=== PATIENT | female | born 1940 | race Caucasian/White ===

== ENCOUNTER 2021-11-22 15:37 | Observation (INO) ==
--- NOTE | 2021-11-22 16:19 | Emergency Department Note ---
Impression & Plan Confusion, HTN (hypertension) ED Provider Note Provider: Ken Gonzalez MD DATE OF SERVICE: 11/22/2021 CHIEF COMPLAINT: Confusion/memory loss HISTORY OF PRESENT ILLNESS: Patient is a 81-year-old female history of hypertension presenting via ambulance today for evaluation of onset of confusion and memory loss this afternoon. Patient states she is in town for her nieces wedding. States she remembers going out for a walk at the hotel they are staying out and coming back but does not really remember getting dressed. She states she is not entirely sure what happened this afternoon but just remembers sitting next to her son in the lobby of the hotel with him asking where the ambulance was. She denies trauma or pain at this time. She reports has a history of high blood pressure and is on lisinopril. She denies any numbness or tingling in her extremities or difficulty with her speech. EMS and nursing report the patient has been somewhat repetitive but awake and answering questio ns. Patient denies a history of similar. She denies recent illness. Patient states a family history of stroke but denies a personal history. REVIEW OF SYSTEMS: A total of 10 review of systems was obtained and negative except as stated above in the HPI. PAST MEDICAL HISTORY: As noted above MEDICATIONS: Reviewed home medications includes aspirin 81mg FMH: There with history of stroke SOCIAL HISTORY: Very distant former smoker PHYSICAL EXAM: GENERAL: alert and oriented to her current location but some haziness to recent events of the day. In no acute distress on stretcher Head: normocephalic and atraumatic EYES: No injection, discharge or icterus. PERRL, EOMI. NECK: Trachea midline. Supple. ENT: Mucous membranes pink and moist. Pharynx without erythema or exudate. Tongue midline. LUNGS: Airway patent. No retractions. Breath sounds clear HEART: Regular rate and rhythm. No chest wall tenderness ABDOMEN: Soft and non-tender, without guarding or rebound. SKIN: Acyanotic, warm, dry, without rashes EXTREMITIES: Without swelling, tenderness or deformity NEUROLOGICAL: No focal deficits and follows all commands No aphasia. No facial droop or slurred speech. Normal strength and tone in the extremities. Sensation to gross touch normal. Ambulatory. EK bpm sinus rhythm with sinus arrhythmia. No acute PVC or PAC. No acute ST segment elevation noted with a QTC of 472. CONTINUOUS CARDIAC MONITORING: was ordered and showed a heart rate of 70s-90s bpm in normal sinus rhythm to sinus arrhythmia Patient's laboratory studies and imaging reviewed. Differential includes Infection, dehydration, metabolic abnormality, hypo/hyperglycemia, electrolyte disturbance, anemia, hypoxia, cardiac sources, intracerebral event, toxicologic, neurologic, as well as other pathologies. IMPRESSION/MEDICAL DECISION MAKING: No significant focal deficit on exam but is somewhat repetitive reporting she does not remember how she got dressed this afternoon for the wedding and what happened. No trauma is reported and the patient denies any significant pain. There is no evidence of traumatic injury to the patient on exam. Patient without aphasia or facial droop. Patient without a clear last known well. No report of intoxicants. The patient is significantly hypertensive upon arrival. Does report a history of occasional leg cramps and is on lisinopril. Reported compliance with these medications. Given the unclear last known well and lack of focal deficits was not made a stroke alert. We will proceed with work-up to try to further evaluate including CT and CTAs of the head and neck. Basic blood work will be sent. Other considerations could be TGA although the age is a bit concerning for more of a CVA picture. Chest x-ray per radiology reassuring. Blood work without significant anemia or leukocytosis. No severe electrolyte abnormality noted with normal TSH. Reviewed EKG and reassuring troponin and doubt this is cardiac in nature. Patient still vague recollection issues and still significantly hypertensive. Given this did give a dose of IV labetalol. CTs of the head & neck per radiology without significant acute abnormality. Question occult CVA still. Given persistent memory issues will recommend further evaluation here at the hospital. Patient later with a mild headache and given a small amount of Tylenol. Blood pressure improved with labetalol. DIAGNOSIS: Confusion, Hypertensive urgency DISPOSITION: Hospitalist will evaluate Patient was agreeable with this plan. Past Med/Surg History Medical History Dyslipidemia GERD (gastroesophageal reflux disease) Thyroid nodule Surgical History H/O: hysterectomy Hx of cholecystectomy Family History Mother Stroke Social History Smoking Status: Former smoker Smoking End Date: Quit at age 31; Hx Alcohol Use: No Hx Substance Use: No Preferred Language: Lithuanian Communication Ability: Effective Check Inspector Required: No Beliefs That Will Affect Care: None Current Living Situation: Alone Other Information That Helps Us Care for You: No Feels Safe at Home: Yes Safety Concerns: Feels Safe At This Time Assistive Devices: Denture - Lower and Glasses Allergies Allergies Allergy/AdvReac Type Severity Reaction Status Date / Time No Known Allergies Allergy Verified 11/22/21 16:57 Home Meds Home Medications Medication Instructions Recorded Confirmed albuterol sulfate 90 mcg/actuation 2 puff INHALATION DIRECTED PRN 11/22/21 11/22/21 aerosol inhaler (Ventolin HFA) amlodipine 5 mg tablet 2.5 - 5 mg PO QAM PRN 11/22/21 11/22/21 aspirin 81 mg tablet,delayed 81 mg PO HS 11/22/21 11/22/21 release baclofen 10 mg tablet 10 mg PO BID PRN 11/22/21 11/22/21 ciclopirox 8 % topical solution 1 applic TOPICAL DAILY 11/22/21 11/22/21 gabapentin 400 mg capsule See Rx Instructions .ROUTE .COMPLEX 11/22/21 11/22/21 lisinopril 30 mg tablet 30 mg PO DAILY 11/22/21 11/22/21 methylprednisolone 4 mg tablets in 0 mg PO DAILY 11/22/21 11/22/21 a dose pack metoprolol succinate 50 mg 75 mg PO DAILY 11/22/21 11/22/21 tablet,extended release 24 hr multivitamin 1 tab PO DAILY 11/22/21 11/22/21 pantoprazole 40 mg tablet,delayed 40 mg PO DAILY 11/22/21 11/22/21 release rosuvastatin 10 mg tablet 10 mg PO DAILY 11/22/21 11/22/21 Results & Data (ED) Vital Signs Vital Signs - 24 hr 11/22/21 15:37 11/22/21 16:08 11/22/21 16:30 Temperature 37.1 C Temperature Source Oral Pulse Rate 100 H 75 68 Pulse Rate from SpO2 Sensor Respiratory Rate 18 22 17 Respiratory Effort / Characteristics Non-Labored Respiratory Depth Normal Respiratory Pattern Regular Blood Pressure 213/142 H 204/108 H 193/108 H Blood Pressure Mean 165 140 136 Pulse Oximetry 97 Oxygen Delivery Method Room Air Sepsis Recent Fever Within 48 Hours No Sepsis New/Unexplained Change in Mental Status No Sepsis Action Taken by Nursing No Action Required 11/22/21 17:00 11/22/21 17:34 11/22/21 18:00 Temperature Temperature Source Pulse Rate 66 96 H 97 H Pulse Rate from SpO2 Sensor 66 93 H 97 H Respiratory Rate 13 18 22 Respiratory Effort / Characteristics Respiratory Depth Respiratory Pattern Blood Pressure 185/96 H 210/123 H 215/108 H Blood Pressure Mean 125 152 143 Pulse Oximetry 96 97 97 Oxygen Delivery Method Sepsis Recent Fever Within 48 Hours Sepsis New/Unexplained Change in Mental Status Sepsis Action Taken by Nursing 11/22/21 18:30 Temperature Temperature Source Pulse Rate 77 Pulse Rate from SpO2 Sensor Respiratory Rate 20 Respiratory Effort / Characteristics Respiratory Depth Respiratory Pattern Blood Pressure 159/102 H Blood Pressure Mean 121 Pulse Oximetry Oxygen Delivery Method Sepsis Recent Fever Within 48 Hours Sepsis New/Unexplained Change in Mental Status Sepsis Action Taken by Nursing Laboratory Data Result diagrams: 11/22/21 15:53 11/22/21 15:53 Lab Results 11/22/21 11/22/21 11/22/21 Range/Units 15:53 15:53 15:53 WBC 9.94 (4.8-10.8) K/uL RBC 4.67 (4.2-5.4) M/uL Hgb 14.6 (12.0-16.0) g/dL Hct 44.6 (37-47) % MCV 95.5 (80-100) fL MCH 31.3 (25-34) pg MCHC 32.7 (32-36) g/dL RDW Std Deviation 45.4 (36.4-46.3) fL RDW Coeff of Dot 13.1 (11.5-14.5) % Plt Count 259 (130-400) K/uL MPV 11.4 H (7.4-10.4) fL Immature Gran % (Auto) 0.5 % Neut % (Auto) 70.5 % Lymph % (Auto) 22.5 % Barron % (Auto) 5.9 % Eos % (Auto) 0.3 % Baso % (Auto) 0.3 % Neut # (Auto) 7.00 H (1.4-6.5) K/uL Lymph # (Auto) 2.24 (1.2-3.4) K/uL Barron # (Auto) 0.59 (0.11-0.59) K/uL Eos # (Auto) 0.03 (0-0.5) K/uL Baso # (Auto) 0.03 (0-0.2) K/uL Immature Gran # (Auto) 0.05 H (0.00-0.02) K/uL PT 10.3 (9.0-12.0) Seconds INR 1.0 (0.9-1.1) APTT 25.1 (21.0-31.0) Seconds PTT Ratio 0.9 Sodium 137 (136-145) mmol/L Potassium 3.6 (3.5-5.1) mmol/L Chloride 97 L (98-107) mmol/L Carbon Dioxide 31 (21-32) mmol/L Anion Gap 9 (3-11) BUN 19 (6-23) mg/dl Creatinine 0.68 (0.6-1.2) mg/dl Est Cr Clr Drug Dosing 60.4 ml/min Est GFR ( Amer) 96.4 ml/min Est GFR (Non-Af Amer) 83.2 ml/min BUN/Creatinine Ratio 27.9 H (10-20) Glucose 100 H (70-99(Fasting)) mg/dl Calcium 9.3 (8.5-10.1) mg/dl Magnesium 2.0 (1.7-2.4) mg/dl Total Bilirubin 0.7 (0.2-1.0) mg/dl AST 21 (13-39) U/L ALT 18 (7-52) U/L Alkaline Phosphatase 59 (34-104) U/L Troponin I High Sens 6.7 (0-14) pg/ml Total Protein 7.6 (6.0-8.3) gm/dl Albumin 4.7 (3.4-5.0) gm/dl Globulin 2.9 (2.5-4.0) gm/dl Albumin/Globulin Ratio 1.6 (0.9-2) TSH (0.300-4.500) uIu/ml Urine Color Urine Appearance (Clear) Urine pH (4.5-7.5) Ur Specific [place] (1.000-1.030) Urine Protein (Negative) Urine Glucose (UA) (Negative) Urine Ketones (Negative) Urine Blood (Negative) Urine Nitrite (Negative) Urine Bilirubin (Negative) Urine Urobilinogen (Negative) Ur Leukocyte Esterase (Negative) Urine WBC (Auto) (0-5) /hpf Urine RBC (Auto) (0-4) /hpf U Hyaline Cast (Auto) (0-5) /lpf U Epithel Cells (Auto) (0-5) /lpf Urine Bacteria (Auto) (Negative) SARS-CoV-2, RNA, NAAT (NEGATIVE) 11/22/21 11/22/21 11/22/21 Range/Units 15:53 16:50 18:29 WBC (4.8-10.8) K/uL RBC (4.2-5.4) M/uL Hgb (12.0-16.0) g/dL Hct (37-47) % MCV (80-100) fL MCH (25-34) pg MCHC (32-36) g/dL RDW Std Deviation (36.4-46.3) fL RDW Coeff of Dot (11.5-14.5) % Plt Count (130-400) K/uL MPV (7.4-10.4) fL Immature Gran % (Auto) % Neut % (Auto) % Lymph % (Auto) % Barron % (Auto) % Eos % (Auto) % Baso % (Auto) % Neut # (Auto) (1.4-6.5) K/uL Lymph # (Auto) (1.2-3.4) K/uL Barron # (Auto) (0.11-0.59) K/uL Eos # (Auto) (0-0.5) K/uL Baso # (Auto) (0-0.2) K/uL Immature Gran # (Auto) (0.00-0.02) K/uL PT (9.0-12.0) Seconds INR (0.9-1.1) APTT (21.0-31.0) Seconds PTT Ratio Sodium (136-145) mmol/L Potassium (3.5-5.1) mmol/L Chloride (98-107) mmol/L Carbon Dioxide (21-32) mmol/L Anion Gap (3-11) BUN (6-23) mg/dl Creatinine (0.6-1.2) mg/dl Est Cr Clr Drug Dosing ml/min Est GFR ( Amer) ml/min Est GFR (Non-Af Amer) ml/min BUN/Creatinine Ratio (10-20) Glucose (70-99(Fasting)) mg/dl Calcium (8.5-10.1) mg/dl Magnesium (1.7-2.4) mg/dl Total Bilirubin (0.2-1.0) mg/dl AST (13-39) U/L ALT (7-52) U/L Alkaline Phosphatase (34-104) U/L Troponin I High Sens (0-14) pg/ml Total Protein (6.0-8.3) gm/dl Albumin (3.4-5.0) gm/dl Globulin (2.5-4.0) gm/dl Albumin/Globulin Ratio (0.9-2) TSH 0.895 (0.300-4.500) uIu/ml Urine Color Yellow Urine Appearance Clear (Clear) Urine pH 7.0 (4.5-7.5) Ur Specific [place] 1.004 (1.000-1.030) Urine Protein Negative (Negative) Urine Glucose (UA) Negative (Negative) Urine Ketones Negative (Negative) Urine Blood Trace H (Negative) Urine Nitrite Negative (Negative) Urine Bilirubin Negative (Negative) Urine Urobilinogen Negative (Negative) Ur Leukocyte Esterase Negative (Negative) Urine WBC (Auto) 0 (0-5) /hpf Urine RBC (Auto) 0-4 (0-4) /hpf U Hyaline Cast (Auto) 0 (0-5) /lpf U Epithel Cells (Auto) 0-5 (0-5) /lpf Urine Bacteria (Auto) Negative (Negative) SARS-CoV-2, RNA, NAAT NEGATIVE (NEGATIVE) Administered Medications Acetaminophen (Acetaminophen 325 Mg Tab) 650 mg PO Q4H PRN PRN Reason: Pain or Fever Stop: 12/22/21 21:59 Last Admin: 11/22/21 22:18 Dose: 650 mg Documented by: [id number] Gabapentin (Gabapentin 800 Mg Tab) 800 mg PO QPM BENJA Stop: 12/22/21 20:59 Last Admin: 11/22/21 21:26 Dose: 800 mg Documented by: [id number] Discontinued Medications Acetaminophen (Acetaminophen 325 Mg Tab) 650 mg PO NOW STA Stop: 11/22/21 18:09 Last Admin: 11/22/21 18:21 Dose: 650 mg Documented by: [id number] Amlodipine Besylate (Amlodipine Besylate 5 Mg Tab) 2.5 mg PO HS ONE Stop: 11/22/21 19:16 Last Admin: 11/22/21 19:24 Dose: 2.5 mg Documented by: [id number] Aspirin (Aspirin 81 Mg Ectab) 81 mg PO NOW STA Stop: 11/22/21 19:16 Last Admin: 11/22/21 19:24 Dose: 81 mg Documented by: [id number] Thiamine HCl 500 mg/ Sodium (Chloride) 55 mls @ 220 mls/hr IV ONE ONE Stop: 11/22/21 19:59 Last Infusion: 11/22/21 21:28 Dose: 0 mls/hr Documented by: [id number] Admin: 11/22/21 21:04 Dose: 220 mls/hr Documented by: [id number] Ioversol (Optiray 320 125ml) 120 ml IV ONCE ONE Stop: 11/22/21 17:12 Last Admin: 11/22/21 17:12 Dose: 120 ml Documented by: [id number] Labetalol HCl (Labetalol Hcl Iv 5 Mg/Ml 20ml) 10 mg IV NOW STA Stop: 11/22/21 17:37 Last Admin: 11/22/21 18:21 Dose: 10 mg Documented by: [id number] Cosigned by: [id number] Imaging Data Radiologist's Impression: Chest X-Ray 11/22/21 16:09 XR chest 1V portable CLINICAL HISTORY: Stroke Like Symptoms, confusion TECHNIQUE: Single frontal radiograph of the chest was obtained. Comparison: None available at the time of this dictation. FINDINGS: No lines and tubes are seen. Calcified aortic knob is seen. The lungs are clear. No evidence of pleural effusion or pneumothorax. IMPRESSION: No acute chest disease. ACT 112: Negative or not required by law. Electronically signed by: Marco Toro M.D. 11/22/2021 4:[address] 11/22/21 16:09 CT angio head w con, CT head/brain wo con, CT angio neck with con CLINICAL HISTORY: Stroke Like Symptoms TECHNIQUE: Contiguous axial CT images of the head were acquired from the base of the skull to the vertex without intravenous contrast administration. CT angiography of the head and neck was performed following intravenous administration of iodinated contrast. Coronal and sagittal MIPS were obtained from the axial data set and were submitted for review. Automated dose lowering techniques and/or adjustment according to patient size were utilized for this examination. All measurements were calculated based on NASCET criteria. CT DOSE: 1032.67 mGy.cm Comparison: None available at the time of this dictation. FINDINGS: CT head: Areas of decreased attenuation are present in the periventricular and subcortical white matter bilaterally consistent with small vessel ischemic disease. Generalized cerebral atrophy with commensurate enlargement of the ventricles, sulci, and cisterns is also present. There is no acute intracranial hemorrhage or evidence of acute territorial infarction. No shift of the midline structures, mass effect, or extra-axial abnormalities are shown. Ather osclerotic calcifications are present in the intracranial segments of the internal carotid arteries. Multiple large thyroid nodules are seen measuring up to 16 mm in diameter. CTA Neck: A 3 vessel aortic arch is shown. There is no significant athe rosclerotic plaque in the aortic arch or the origins of the innominate, left common carotid, and left subclavian arteries. The common carotid, external carotid, cervical segments of the internal carotid arteries, and the cervical segments of the vertebral arteries are patent without hemodynamically significant stenosis. The left vertebral artery is dominant. CTA Head: The anterior and posterior cerebral circulations are patent. No hemodynamically significant stenosis, aneurysm, dissection, or arteriovenous malformation is shown. Atherosclerotic disease is noted. IMPRESSION: 1. No acute intracranial hemorrhage, evidence of acute territorial infarction, or other acute intracranial disease process. 2. No occlusion, hemodynamically significant stenosis, aneurysm, dissection, or arteriovenous malformation in the major intracranial arteries. 3. No occlusion, hemodynamically significant stenosis, or dissection in the major cervical arteries. 4. Multiple thyroid nodules are seen. If not previously evaluated, nonemergent thyroid ultrasound can be performed. Assessment of stenosis of the internal carotid arteries is based on NASCET criteria. ACT 112: Positive. There are findings on this exam that require communication between the performing entity and the patient following Patient Test Result Inf ormation Act ([place] Act 112) guidelines. Electronically signed by: Marco Toro M.D. 11/22/2021 5:39 PM Head CTA 11/22/21 16:09 CT angio head w con, CT head/brain wo con, CT angio neck with con CLINICAL HISTORY: Stroke Like Symptoms TECHNIQUE: Contiguous axial CT images of the head were acquired from the base of the skull to the vertex without intravenous contrast administration. CT angiography of the head and neck was performed following intravenous administration of iodinated contrast. Coronal and sagittal MIPS were obtained from the axial data set and were submitted for review. Automated dose lowering techniques and/or adjustment according to patient size were utilized for this examination. All measurements were calculated based on NASCET criteria. CT DOSE: 1032.67 mGy.cm Comparison: None available at the time of this dictation. FINDINGS: CT head: Areas of decreased attenuation are present in the periventricular and subcortical white matter bilaterally consistent with small vessel ischemic di sease. Generalized cerebral atrophy with commensurate enlargement of the ventricles, sulci, and cisterns is also present. There is no acute intracranial hemorrhage or evidence of acute territorial infarction. No shift of the midline structures, mass effect, or extra-axial abnormalities are shown. A therosclerotic calcifications are present in the intracranial segments of the internal carotid arteries. Multiple large thyroid nodules are seen measuring up to 16 mm in diameter. CTA Neck: A 3 vessel aortic arch is shown. There is no significant atherosclerotic plaque in the aortic arch or the origins of the innominate, left common carotid, and left subclavian arteries. The common carotid, external carotid, cervical segments of the internal carotid arteries, and the cervical segments of the vertebral arteries are patent without hemodynamically significant stenosis. The left vertebral artery is dominant. CTA Head: The anterior and posterior cerebral circulations are patent. No hemodynamically significant stenosis, aneurysm, dissection, or arteriovenous malformation is shown. Atherosclerotic disease is noted. IMPRESSION: 1. No acute intracranial hemorrhage, evidence of acute territorial infarction, or other acute intracranial disease process. 2. No occlusion, hemodynamically significant stenosis, aneurysm, dissection, or arteriovenous malformation in the major intracranial arteries. 3. No occlusion, hemodynamically significant stenosis, or dissection in the major cervical arteries. 4. Multiple thyroid nodules are seen. If not previously evaluated, nonemergent thyroid ultrasound can be performed. Assessment of stenosis of the internal carotid arteries is based on NASCET crit eria. ACT 112: Positive. There are findings on this exam that require communication between the performing entity and the patient following Patient Test Result Information Act ([place] Act 112) guidelines. Electronically signed by: Marco Toro M.D. 11/22/2021 5:39 PM Neck CTA 05/14/22 16:09 CT angio head w con, CT head/brain wo con, CT angio neck with con CLINICAL HISTORY: Stroke Like Symptoms TECHNIQUE: Contiguous axial CT images of the head were acquired from the base of the skull to the vertex without intravenous contrast administration. CT angiography of the head and neck was performed following intravenous administration of iodinated contrast. Coronal and sagittal MIPS were obtained from the axial data set and were submitted for review. Automated dose lowering techniques and/or adjustment according to patient size were utilized for this examination. All measurements were calculated based on NASCET criteria. CT DOSE: 1032.67 mGy.cm Comparison: None available at the time of this dictation. FINDINGS: CT head: Areas of decreased attenuation are present in the periventricular and subcortical white matter bilaterally consistent with small vessel ischemic disease. Generalized cerebral atrophy with commensurate enlargement of the ventricles, sulci, and cisterns is also present. There is no acute intracranial hemorrhage or evidence of acute territorial infarction. No shift of the midline structures, mass effect, or extra-axial abnormalities are shown. Atherosclerotic calcifications are present in the intracranial segments of the internal carotid arteries. Multiple large thyroid nodules are seen measuring up to 16 mm in diameter. CTA Neck: A 3 vessel aortic arch is shown. There is no significant atherosclerotic plaque in the aortic arch or the origins of the innominate, left common carotid, and left subclavian arteries. The common carotid, external carotid, cervical segments of the internal carotid arteries, and the cervical segments of the vertebral arteries are patent without hemodynamically significant stenosis. The left vertebral artery is dominant. CTA Head: The anterior and posterior cerebral circulations are patent. No hemodynamically significant stenosis, aneurysm, dissection, or arteriovenous malformation is shown. Atherosclerotic disease is noted. IMPRESSION: 1. No acute intracranial hemorrhage, evidence of acute territorial infarction, or other acute intracranial disease process. 2. No occlusion, hemodynamically significant stenosis, aneurysm, dissection, or arteriovenous malformation in the major intracranial arteries. 3. No occlusion, hemodynamically significant stenosis, or dissection in the major cervical arteries. 4. Multiple thyroid nodules are seen. If not previously evaluated, nonemergent thyroid ultrasound can be performed. Assessment of stenosis of the internal carotid arteries is based on NASCET criteria. ACT 112: Positive. There are findings on this exam that require communication between the performing entity and the patient following Patient Test Result Information Act ([place] Act 112) guidelines. Electronically signed by: Marco Toro M.D. 11/22/2021 5:39 PM Discharge Plan Visit Data Chief Complaint: Confusion Stated Complaint: CONFUSION ED Provider: Ken Gonzalez Discharge Problem: Confusion, HTN (hypertension) Patient Disposition: Admitted As Inpatient Discharge Instructions Interventions: ED Discharge Assessment Last Done: 11/22/21 20:19 Discharge Problem: HTN (hypertension) Qualifiers: Hypertension type: unspecified Qualified Code(s): I10 - Essential (primary) hypertension
[2021-11-22 16:24] LABS: Basophils # (auto) 0.03 K/uL (0-0.2); Basophils % (auto) 0.3 %; Eosinophils # (auto) 0.03 K/uL (0-0.5); Eosinophils % (auto) 0.3 %; Hematocrit (blood only) 44.6 % (37-47); Hemoglobin 14.6 g/dL (12.0-16.0); Immature Granulocytes # (auto) 0.05 K/uL (0.00-0.02); Immature Granulocytes % (auto) 0.5 %; Lymphocytes # (auto) 2.24 K/uL (1.2-3.4); Lymphocytes % (auto) 22.5 %; Mean Corpuscular Hemoglobin 31.3 pg (25-34); Mean Corpuscular Hgb Conc 32.7 g/dL (32-36); Mean Corpuscular Volume 95.5 fL (80-100); Mean Platelet Volume 11.4 fL (7.4-10.4); Monocytes # (auto) 0.59 K/uL (0.11-0.59); Monocytes % (auto) 5.9 %; Neutrophils % (auto) 70.5 %; Platelet Count 259 K/uL (130-400); RDW Coefficient of Variation 13.1 % (11.5-14.5); RDW Standard Deviation 45.4 fL (36.4-46.3); Red Blood Count 4.67 M/uL (4.2-5.4); White Blood Count 9.94 K/uL (4.8-10.8)
--- NOTE | 2021-11-22 16:35 | XRay Report ---
XR chest 1V portable CLINICAL HISTORY: Stroke Like Symptoms, confusion TECHNIQUE: Single frontal radiograph of the chest was obtained. Comparison: None available at the time of this dictation. FINDINGS: No lines and tubes are seen. Calcified aortic knob is seen. The lungs are clear. No evidence of pleur al effusion or pneumothorax. IMPRESSION: No acute chest disease. ACT 112: Negative or not required by law. Electronically signed by: Marco Toro M.D. 11/22/2021 4:34 PM
[2021-11-22 16:37] LABS: Partial Thromboplastin Ratio 0.9; Partial Thromboplastin Time 25.1 Seconds (21.0-31.0); Prothrombin Time 10.3 Seconds (9.0-12.0)
[2021-11-22 16:43] LABS: Albumin Globulin Ratio 1.6 (0.9-2); Albumin Level 4.7 gm/dl (3.4-5.0); BUN Creatinine Ratio 27.9 (10-20); Bilirubin,Total 0.7 mg/dl (0.2-1.0); Calcium 9.3 mg/dl (8.5-10.1); Creatinine Clr Calc Pharmacy 60.4 ml/min; Est GFR (African American) 96.4 ml/min; Est GFR (Non-African American) 83.2 ml/min; Globulin 2.9 gm/dl (2.5-4.0); Potassium 3.6 mmol/L (3.5-5.1); Total Protein 7.6 gm/dl (6.0-8.3); Troponin I High Sensitivity 6.7 pg/ml (0-14)
[2021-11-22] MEDS ORDERED: OPTIRAY 320 125ml IV ONE (17:11)
[2021-11-22 17:27] LABS: Appearance Urine Clear (Clear); Bacteria Urine Automated Negative (Negative); Bilirubin Urine Negative (Negative); Blood Urine Trace (Negative); Cast Urine Automated 0 /lpf (0-5); Color Urine Yellow; Epithelial Cell Urine Auto 0-5 /lpf (0-5); Glucose Urine UA Negative (Negative); Ketones Urine Negative (Negative); Leukocyte Esterase Urine Negative (Negative); Nitrite Urine Negative (Negative); Protein Urine Negative (Negative); RBC Urine Automated 0-4 /hpf (0-4); Specific Gravity Urine 1.004 (1.000-1.030); Urobilinogen Urine Negative (Negative); WBC Urine Automated 0 /hpf (0-5)
[2021-11-22] MEDS ORDERED: LABETALOL HCL IV 5 MG/ML 20ML IV STA (17:36)
--- NOTE | 2021-11-22 17:42 | CT Scan Report ---
CT angio head w con, CT head/brain wo con, CT angio neck with con CLINICAL HISTORY: Stroke Like Symptoms TECHNIQUE: Contiguous axial CT images of the head were acquired from the base of the skull to the [place] deidra without intravenous contrast administration. CT angiography of the head and neck was performed f ollowing intravenous administration of iodinated contrast. Coronal and sagittal MIPS were obtained fr om the axial data set and were submitted for review. Automated dose lowering techniques and/or adjus tment according to patient size were utilized for this examination. All measurements were calculated based on NASCET criteria. CT DOSE: 1032.67 mGy.cm Comparison: None available at the time of this dictation. FINDINGS: CT head: Areas of decreased attenuation are present in the periventricular and subcortical white gabino er bilaterally consistent with small vessel ischemic disease. Generalized cerebral atrophy with comme nsurate enlargement of the ventricles, sulci, and cisterns is also present. There is no acute intracr anial hemorrhage or evidence of acute territorial infarction. No shift of the midline structures, mas s effect, or extra-axial abnormalities are shown. Atherosclerotic calcifications are present in the intracranial segments of the internal carotid arteries. Multiple large thyroid nodules are seen measuring up to 16 mm in diameter. CTA Neck: A 3 vessel aortic arch is shown. There is no significant atherosclerotic plaque in the aor tic arch or the origins of the innominate, left common carotid, and left subclavian arteries. The c ommon carotid, external carotid, cervical segments of the internal carotid arteries, and the cervical segments of the vertebral arteries are patent without hemodynamically significant stenosis. The left vertebral artery is dominant. CTA Head: The anterior and posterior cerebral circulations are patent. No hemodynamically significan t stenosis, aneurysm, dissection, or arteriovenous malformation is shown. Atherosclerotic disease is noted. IMPRESSION: 1. No acute intracranial hemorrhage, evidence of acute territorial infarction, or other acute intrac ranial disease process. 2. No occlusion, hemodynamically significant stenosis, aneurysm, dissection, or arteriovenous malfor mation in the major intracranial arteries. 3. No occlusion, hemodynamically significant stenosis, or dissection in the major cervical arteries. 4. Multiple thyroid nodules are seen. If not previously evaluated, nonemergent thyroid ultrasound ca n be performed. Assessment of stenosis of the internal carotid arteries is based on NASCET criteria. ACT 112: Positive. There are findings on this exam that require communication between the performing entity and the patient following Patient Test Result Information Act ([place] Act 112) guidelines. Electronically signed by: Marco Toro M.D. 11/22/2021 5:39 PM
--- NOTE | 2021-11-22 17:58 | History & Physical Report ---
Date of Service November 22, 2021 Assessment & Plan (1) Confusion: Plan: Confusion/memory issues DD: CVA, transient global amnesia, Seizure, hypertensive encephalopathy --CTA Head/Neck: No acute intracranial hemorrhage, evidence of acute territorial infarction, or other acute intracranial disease process. No occlusion, hemodynamically significant stenosis, aneurysm, dissection, or arteriovenous malformation in the major intracranial arteries. No occlusion, hemodynamically significant stenosis, or dissection in the major cervical arteries. Multiple thyroid nodules are seen. If not previously evaluated, nonemergent thyroid ultrasound can be performed. -- Given aspirin in ED Blood pressure control Given thiamine 500 mg Obtain MRI brain, EEG, urine tox screen TSH normal Urine analysis normal Check vitamin B12 levels, lipid panel, HbA1c Neuro checks requested Neurology consulted Further work-up based on MRI, EEG results No obvious source of infection noted Hypertensive urgency ? Worsened due to recent steroid course Resume amlodipine, lisinopril IV labetalol as needed Consider ECHO if needed Thyroid nodule TSH within normal limits Further work-up as outpatient Prolonged QTC Avoid QTC prolonging meds Hyperlipidemia Continue statin GERD Continue PPI DVT Px: SCDs for now Disposition PT/OT prior to discharge History of Present Illness Chief Complaint: Amnesia Primary Care Provider: NO PCP Patient is a 81 yr female with history of hypertension, hyperlipidemia, GERD, thyroid nodules, ? Tricuspid valve regurgitation and other medical problems presents with history of memory loss. History is limited as patient unable to recollect events prior to admission. Patient is visiting town for her niece's wedding. Most of the history is obtained from patient, ER staff. Patient was last known to be at baseline at around 11 AM today. Patient recollects to having her breakfast, shower getting dressed for the wedding and remembers discussing with her patient's son but believed to remember calling for ambulance. Patient denies having similar memory issues in the past. Patient could not remember complete events prior to coming to ED. She believes her memory is slowly improving currently. She could not remember if she took her home medications today. She has been on a steroid tapering course for "Buttock swelling secondary to fall 3 weeks ago" which she believes is left with 2 more doses. She was found to be somewhat repetitive when asked questions. She is currently only oriented to place time and person. She denies having any stroke in the past but states that her mother had stroke. CT imaging is negative for acute CVA. Denies any history of chest pain, dyspnea, palpitations, dizziness, cough, fever, chills, head trauma, Syncope, focal weakness, numbness, change in vision, double/blurry vision, vertigo, slurred speech, facial deformity, bowel/bladder incontinence, nausea, vomiting, abdominal pain, blood in stools, diarrhea, change in appetite, weight loss, dysuria, hematuria. Blood pressure is elevated while in ED. She did have some headache earlier which is slowly improving. Allergies Allergy/AdvReac Type Severity Reaction Status Date / Time No Known Allergies Allergy Verified 11/22/21 16:57 Home Medications Medication Instructions Recorded Confirmed Type albuterol sulfate 90 mcg/actuation 2 puff INHALATION DIRECTED PRN 11/22/21 11/22/21 History aerosol inhaler (Ventolin HFA) amlodipine 5 mg tablet 2.5 - 5 mg PO QAM PRN 11/22/21 11/22/21 History aspirin 81 mg tablet,delayed 81 mg PO HS 11/22/21 11/22/21 History release baclofen 10 mg tablet 10 mg PO BID PRN 11/22/21 11/22/21 History ciclopirox 8 % topical solution 1 applic TOPICAL DAILY 11/22/21 11/22/21 History gabapentin 400 mg capsule See Rx Instructions .ROUTE .COMPLEX 11/22/21 11/22/21 History lisinopril 30 mg tablet 30 mg PO DAILY 11/22/21 11/22/21 History methylprednisolone 4 mg tablets in 0 mg PO DAILY 11/22/21 11/22/21 History a dose pack metoprolol succinate 50 mg 75 mg PO DAILY 11/22/21 11/22/21 History tablet,extended release 24 hr multivitamin 1 tab PO DAILY 11/22/21 11/22/21 History pantoprazole 40 mg tablet,delayed 40 mg PO DAILY 11/22/21 11/22/21 History release rosuvastatin 10 mg tablet 10 mg PO DAILY 11/22/21 11/22/21 History Past Med/Surg History Medical History Dyslipidemia GERD (gastroesophageal reflux disease) Thyroid nodule Surgical History H/O: hysterectomy Hx of cholecystectomy Family History Mother Stroke Social History Smoking Status: Former smoker Hx Alcohol Use: No Hx Substance Use: No Preferred Language: Faroese Feels Safe at Home: Yes Review of Systems Review of Systems: All systems reviewed & are unremarkable except as noted in HPI & below Physical Exam Physical Exam: Physical Exam: Vitals signs as noted above General Appearance:Thin, no apparent distress Head: normocephalic, Atraumatic Eyes: normal inspection, EOMI Neck: supple, Trachea midline Respiratory/Chest: Normal breath sounds, CTA, No accessory muscle use Cardiovascular: S1, S2, No murmur Abdomen/GI:Soft, Non tender, Bowel sounds present Extremities/Musculoskeletal:normal inspection, no edema Neurologic/Psych:AAOX3, grossly no focal neurological deficits, +Memory Issues Skin: normal color, warm Results & Data Results & Data ([facility]) Vital Signs (Past 12 Hours) Vital Signs Temp Pulse Resp BP Pulse Ox 11/22/21 15:37 37.1 C 100 H 18 213/142 H 97 Laboratory Results Short CBC 11/22/21 Range/Units 15:53 WBC 9.94 (4.8-10.8) K/uL Hgb 14.6 (12.0-16.0) g/dL Hct 44.6 (37-47) % Plt Count 259 (130-400) K/uL BMP 11/22/21 15:53 Sodium 137 Potassium 3.6 Chloride 97 L Carbon Dioxide 31 BUN 19 Creatinine 0.68 Glucose 100 H Calcium 9.3 Liver Function 11/22/21 Range/Units 15:53 Total Bilirubin 0.7 (0.2-1.0) mg/dl AST 21 (13-39) U/L ALT 18 (7-52) U/L Alkaline Phosphatase 59 (34-104) U/L Albumin 4.7 (3.4-5.0) gm/dl Urine 11/22/21 Range/Units 16:50 Urine Color Yellow Urine Appearance Clear (Clear) Urine pH 7.0 (4.5-7.5) Ur Specific Hester 1.004 (1.000-1.030) Urine Protein Negative (Negative) Urine Glucose (UA) Negative (Negative) Diagnostic Findings CT Head, CTA Head/Neck: 1. No acute intracranial hemorrhage, evidence of acute territorial infarction, or other acute intracranial disease process. 2. No occlusion, hemodynamically significant stenosis, aneurysm, dissection, or arteriovenous malformation in the major intracranial arteries. 3. No occlusion, hemodynamically significant stenosis, or dissection in the major cervical arteries. 4. Multiple thyroid nodules are seen. If not previously evaluated, nonemergent thyroid ultrasound can be performed. CXR: No acute chest disease. ECG Additional Comments: EKG: Sinus rhythm with sinus arrhythmia, QTC 472. Nonspecific ST abnormality.
[2021-11-22] MEDS ORDERED: ACETAMINOPHEN 325 MG TAB PO STA (18:08)
[2021-11-22] MEDS ORDERED: amLODIPine BESYLATE 5 MG TAB PO ONE (19:15)
[2021-11-22] MEDS ORDERED: ASPIRIN 81 MG ECTAB PO STA (19:15)
[2021-11-22] MEDS ORDERED: THIAMINE HCL 500 MG in SODIUM CHLORIDE 0.9% 50 ML IV ONE (19:45)
[2021-11-22] MEDS ORDERED: POLYETHYLENE (MIRALAX) 17 GM PACK PO PRN (20:42)
[2021-11-22] MEDS ORDERED: ALBUTEROL HFA 8 GM INHALER INH PRN (20:42)
[2021-11-22] MEDS ORDERED: LABETALOL HCL IV 5 MG/ML 20ML IV PRN (20:42)
[2021-11-22] MEDS ORDERED: GABAPENTIN 800 MG TAB PO SCH (21:00)
[2021-11-22] MEDS ORDERED: ACETAMINOPHEN 325 MG TAB PO PRN (22:00)
[2021-11-22 23:14] LABS: Amphetamines+Metham, Urine Neg (Neg); Barbiturates, Urine Neg (Neg); Benzodiazepine, Urine Neg (Neg); Cocaine, Urine Neg (Neg); MDMA (Ecstacy), Urine Neg (Neg); Methadone, Urine Neg (Neg); Opiate, Urine Neg (Neg); Phencyclidine, Urine Neg (Neg)
[2021-11-23] MEDS ORDERED: GADOBUTROL 30ML VIAL IV ONE (01:46)
[2021-11-23] MEDS ORDERED: SODIUM CHLORIDE 0.9% 500 ML IV SCH (04:15)
[2021-11-23] MEDS ORDERED: KETOROLAC TROMETHAMINE 15 MG/ML VIAL IV ONE (04:16)
[2021-11-23 07:01] LABS: Hemoglobin 12.3 g/dL (12.0-16.0); Mean Corpuscular Hemoglobin 30.6 pg (25-34); Mean Corpuscular Hgb Conc 32.4 g/dL (32-36); Mean Corpuscular Volume 94.5 fL (80-100); Platelet Count 192 K/uL (130-400); RDW Coefficient of Variation 13.1 % (11.5-14.5); RDW Standard Deviation 45.1 fL (36.4-46.3); Red Blood Count 4.02 M/uL (4.2-5.4); White Blood Count 7.82 K/uL (4.8-10.8)
[2021-11-23 07:22] LABS: BUN Creatinine Ratio 23.3 (10-20); Calcium 8.5 mg/dl (8.5-10.1); Creatinine Clr Calc Pharmacy 68.4 ml/min; Est GFR (African American) 100.5 ml/min; Est GFR (Non-African American) 86.7 ml/min; Potassium 3.3 mmol/L (3.5-5.1)
--- NOTE | 2021-11-23 07:44 | Magnetic Resonance Report ---
Brain MRI WITH AND WITHOUT CONTRAST HISTORY: Amnesia R/O CVA TECHNIQUE: Multiplanar multisequence MRI of the brain was performed both before and after the intrave nous administration of contrast. COMPARISON STUDY: Head CT 11/22/2021. FINDINGS: There is no mass, hematoma, midline shift, or acute infarct. The paranasal sinuses are jessy r. The mastoid air cells are clear. The ventricles and sulci demonstrate mild age-related involutiona l changes. Scattered foci of T2 hyperintensity seen within the periventricular and subcortical white matter are nonspecific but suggestive of mild microvascular ischemic changes. The major vascular flow voids at the skull base are well-maintained. A 1 cm faint blush of contrast within the left apolinar fav ors a capillary telangectasia. IMPRESSION: No acute intracranial abnormality. Scattered foci of T2 hyperintensity seen within the periventricula r and subcortical white matter are nonspecific but favor microvascular ischemic change. ACT 112: Negative or not required by law. Electronically signed by: Damon Clement M.D. 11/23/2021 7:41 AM
[2021-11-23] MEDS ORDERED: amLODIPine BESYLATE 5 MG TAB PO SCH (09:00)
[2021-11-23] MEDS ORDERED: PANTOprazole 40 MG TAB PO SCH (09:00)
[2021-11-23] MEDS ORDERED: METOPROLOL SUCC 25MG EXT REL TAB PO SCH (09:00)
[2021-11-23] MEDS ORDERED: GABAPENTIN 400 MG CAP PO SCH (09:00)
[2021-11-23] MEDS ORDERED: ROSUVASTATIN CALCIUM 10 MG TAB PO SCH (09:00)
[2021-11-23] MEDS ORDERED: lisinopril 10 MG TAB PO SCH (09:00)
--- NOTE | 2021-11-23 10:17 | Electrocardiogram Report ---
Test Reason : Blood Pressure : / mmHG Vent. Rate : 091 BPM Atrial Rate : 091 BPM P-R Int : 124 ms QRS Dur : 086 ms QT Int : 384 ms P-R-T Axes : 074 059 048 degrees QTc Int : 472 ms Sinus rhythm with marked sinus arrhythmia Minimal voltage criteria for LVH, may be normal variant Nonspecific ST abnormality Abnormal ECG No previous ECGs available Confirmed by Frandy Zaidi ([id number]) on 11/23/2021 10:16:50 AM Referred By: Confirmed By:Frandy Zaidi
[2021-11-23] MEDS ORDERED: BACLOFEN 10 MG TAB PO PRN (11:02)
[2021-11-23] MEDS ORDERED: amLODIPine BESYLATE 5 MG TAB PO ONE (11:55)
--- NOTE | 2021-11-23 12:30 | Communication Note ---
Date of Service: November 23, 2021 By CMS guidelines, a determination that the admission or continued stay is not medically necessary has been made by a member of the UR committee and a physici an for this hospital stay, therefore a Code 44 will be completed and the Inpatient admission will be changed to outpatient.
--- NOTE | 2021-11-23 12:53 | Neurology Consultation ---
Date of Consultation November 23, 2021 Assessment & Plan (1) Amnesia: A 81 yo woman wtih history of HTN and reported episode of amnesia associated with social events admitted with transient amnesia associated witha wedding. Hypertensive in the ER. Blood pressures improved. Ddx includes TGA although less likely if symptoms have consistently occurred in the setting of social or family events. Possible functional neurological disorder. Blood pressures improved. Patient back to [facility] although anxious. No focal neuro deficits on examine. MRI brain shows changes consistent with known hypertension. UA and UDS Negative. Ok to discharge from Neurology standpoint. Would benefit from neuropsych testing near her home if symptoms are recurrent . (2) HTN (hypertension): History of Present Illness Reason for Consultation: Amnesia Requesting Physician: Dr. David Naik MD Attending Physician: David Naik MD History of Present Illness A 72 yo woman with history of HTN, GERD, and HLD on ASA admitted with episode of amnesia yesterday associated with visiting town for a wedding. She is amnestic to some details prior to the wedding. She is feeling better now. Hyperintensive in the ER. Blood pressure improved. She denies pain, weakness, or speech difficulty. Per discussion with Dr. Naik tj has reportedly had similar episodes with social events. She is anxious about her blood pressures and focused on discharge plans. She called her family during my interview. She states she lives by herself. Former smoker. No EtOH. Allergies Allergy/AdvReac Type Severity Reaction Status Date / Time No Known Allergies Allergy Verified 11/22/21 16:57 Home Medications Medication Instructions Recorded Confirmed Type albuterol sulfate 90 mcg/actuation 2 puff INHALATION DIRECTED PRN 11/22/21 11/22/21 History aerosol inhaler (Ventolin HFA) amlodipine 5 mg tablet 2.5 - 5 mg PO QAM PRN 11/22/21 11/22/21 History aspirin 81 mg tablet,delayed 81 mg PO HS 11/22/21 11/22/21 History release ciclopirox 8 % topical solution 1 applic TOPICAL DAILY 11/22/21 11/22/21 History gabapentin 400 mg capsule See Rx Instructions .ROUTE .COMPLEX 11/22/21 11/22/21 History lisinopril 30 mg tablet 30 mg PO DAILY 11/22/21 11/22/21 History methylprednisolone 4 mg tablets in 0 mg PO DAILY 11/22/21 11/22/21 History a dose pack metoprolol succinate 50 mg 75 mg PO DAILY 11/22/21 11/22/21 History tablet,extended release 24 hr multivitamin 1 tab PO DAILY 11/22/21 11/22/21 History pantoprazole 40 mg tablet,delayed 40 mg PO DAILY 11/22/21 11/22/21 History release rosuvastatin 10 mg tablet 10 mg PO DAILY 11/22/21 11/22/21 History Patient History Medical History Dyslipidemia GERD (gastroesophageal reflux disease) Thyroid nodule Surgical History H/O: hysterectomy Hx of cholecystectomy Family History Mother Stroke Social History Smoking Status: Former smoker Smoking End Date: Quit at age 31; Hx Alcohol Use: No Hx Substance Use: No Preferred Language: Haitian Communication Ability: Effective Head Of Strategy Required: No Beliefs That Will Affect Care: None Current Living Situation: Alone Other Information That Helps Us Care for You: No Feels Safe at Home: Yes Safety Concerns: Feels Safe At This Time Assistive Devices: Denture - Lower and Glasses Physical Exam Physical Exam: Appears stated age. Mildly anxious. Thin appearing woman. Head atraumatic normocephalic. Eyes midline. Speech is clear. Face symmetric. Tongue midline w no abrasions. Breathing non labored. Abdomen non distended. No edema in legs. Sensation intact. Following commandds. Oriented to location and age. Talkative. EOMI. No tremor. No weakness in upper or lower extremities. No ataxia. No ankle clonus. No skin rash. No conjuctival injections. Pulses intact. Results & Data ([facility]) Vital Signs (Past 12 Hours) Vital Signs Temp Pulse Pulse Resp BP BP Pulse Ox 11/23/21 12:29 36.8 C 76 78 18 150/74 H 148/83 H 95 11/23/21 11:17 36.8 C 76 18 150/74 H 95 11/23/21 07:37 36.7 C 71 18 148/83 H 95 11/23/21 04:43 113/68 11/23/21 04:03 36.7 C 70 18 97/58 L 94 Laboratory Results UA Negative No Leuocytosis UDS Negative K 3.3 Covid Negative Diagnostic Findings CTA head and neck: negative for LVO or high grade stenosis MRI brain : No acute stroke or hemorrhage. CMIC. (1) HTN (hypertension) Hypertension type: unspecified Qualified Code(s): I10 - Essential (primary) hypertension
--- NOTE | 2021-11-23 16:18 | Hospitalist Progress Note ---
Date of Service November 23, 2021 Assessment & Plan (1) Confusion: Plan: per admitting service notes with addendum: Confusion/memory issues DD: CVA, transient global amnesia, Seizure, hypertensive encephalopathy --CTA Head/Neck: No acute intracranial hemorrhage, evidence of acute territorial infarction, or other acute intracranial disease process. No occlusion, hemodynamically significant stenosis, aneurysm, dissection, or arteriovenous malformation in the major intracranial arteries. No occlusion, hemodynamically significant stenosis, or dissection in the major cervical arteries. Multiple thyroid nodules are seen. If not previously evaluated, nonemergent thyroid ultrasound can be performed. -- Given aspirin in ED Blood pressure control Given thiamine 500 mg Obtain MRI brain, EEG, urine tox screen TSH normal Urine analysis normal Check vitamin B12 levels, lipid panel, HbA1c Neuro checks requested Neurology consulted Further work-up based on MRI, EEG results No obvious source of infection noted 11/23 Brain MRI: no acute Process CT angio: 1. No acute intracranial hemorrhage, evidence of acute territorial infarction, or other acute intracranial disease process. 2. No occlusion, hemodynamically significant stenosis, aneurysm, dissection, or arteriovenous malformation in the major intracranial arteries. 3. No occlusion, hemodynamically significant stenosis, or dissection in the major cervical arteries. 4. Multiple thyroid nodules are seen. If not previously evaluated, nonemergent thyroid ultrasound can be performed. BP improved gradually overnight per family, patient had multiple episodes of amnesia, occurring during social events evaluated by Neurologist Dr. Boyer: Would benefit from neuropsych testing near her home if symptoms are recurrent . ff up with PCP in 1 week Hypertensive urgency, Resolved BP systolic 200s in the ER per family, patient adherent to BP meds and BP yesterday noon was systolic 120s Resume usual medications including amlodipine, lisinopril Multiple Thyroid nodules TSH within normal limits Further work-up as outpatient Prolonged QTC Avoid QTC prolonging meds QTC 472 Hyperlipidemia Continue statin GERD Continue PPI DVT Px: SCDs for now Disposition d/c home ff up with PCP in 1 week plan of care discussed with patient and daughter in law in detail and at length all questions answered they are understanding, agreeable, comfortable with the plan of care Admission and Anticipated Discharge Date Admission Date: November 22, 2021 Subjective ff up for episode of confusion, etc seen resting in bed, comfortable sitting up states she feels much better overall oriented x 3, answers all questions appropriately no focal weakness or numbness no headache, dizziness no chest pain, dyspnea, palpitations, dizziness no other symptoms states she is ready and would like to be discharged today Review of Systems Review of Systems: all noted and negative except for above Physical Exam Physical Exam: General- oriented x 3, not in distress, speaks in sentences with no effort or accessory muscle use Head- atraumatic Eyes- PERRL, EOMI, anicteric ENT- oropharynx clear Neck- supple, no JVD, no adenopathy, no thyromegaly; carotids +2/2, no bruits appreciated Lungs- clear to auscultation bilaterally, no rales/wheezes Heart- normal rate, regular rhythm; no murmur, no gallop, no rub appreciated Abdomen- normal bowel sounds, nondistended, soft, nontender, no masses or hepatosplenomegaly Extremities- no pretibial edema, no calf tenderness; peripheral pulses intact Neuro- alert, oriented x 3; CN 2-12 grossly intact; motor 5/5 bilaterally;sensation 100% on all extremities; no other gross focal neurologic deficits Skin- warm & dry Results & Data Results & Data ([facility]) Vital Signs (Past 12 Hours) Vital Signs Temp Pulse Pulse Resp BP BP Pulse Ox 11/23/21 12:29 36.8 C 76 78 18 150/74 H 148/83 H 95 11/23/21 11:17 36.8 C 76 18 150/74 H 95 11/23/21 07:37 36.7 C 71 18 148/83 H 95 11/23/21 04:43 113/68 all noted and reviewed including below
--- NOTE | 2021-11-23 16:21 | Discharge Summary ---
Date of Service November 23, 2021 Admission HPI Per Admitting Provider Patient is a 81 yr female with history of hypertension, hyperlipidemia, GERD, thyroid nodules, ? Tricuspid valve regurgitation and other medical problems presents with history of memory loss. History is limited as patient unable to recollect events prior to admission. Patient is visiting town for her niece's wedding. Most of the history is obtained from patient, ER staff. Patient was last known to be at baseline at around 11 AM today. Patient recollects to having her breakfast, shower getting dressed for the wedding and remembers discussing with her patient's son but believed to remember calling for ambula nce. Patient denies having similar memory issues in the past. Patient could not remember complete events prior to coming to ED. She believes her memory is slowly improving currently. She could not remember if she took her home medications today. She has been on a steroid tapering course for "Buttock swelling secondary to fall 3 weeks ago" which she believes is left with 2 more doses. She was found to be somewhat repetitive when asked questions. She is currently only oriented to place time and person. She denies having any stroke in the past but states that her mother had stroke. CT imaging is negative for acute CVA. Denies any history of chest pain, dyspnea, palpitations, dizziness, cough, fever, chills, head trauma, Syncope, focal weakness, numbness, change in vision, double/blurry vision, vertigo, slurred speech, facial deformity, bowel/bladder incontinence, nausea, vomiting, abdominal pain, blood in stools, diarrhea, change in appetite, weight loss, dysuria, hematuria. Blood pressure is elevated while in ED. She did have some headache earlier which is slowly improving. Admission Exam Per Admitting Provider Physical Exam: Vitals signs as noted above General Appearance:Thin, no apparent distress Head: normocephalic, Atraumatic Eyes: normal inspection, EOMI Neck: supple, Trachea midline Respiratory/Chest: Normal breath sounds, CTA, No accessory muscle use Cardiovascular: S1, S2, No murmur Abdomen/GI:Soft, Non tender, Bowel sounds present Extremities/Musculoskeletal:normal inspection, no edema Neurologic/Psych:AAOX3, grossly no focal neurological deficits, +Memory Issues Skin: normal color, warm Principal Diagnosis EPISODE OF CONFUSION Discharge Exam General- oriented x 3, not in distress, speaks in sentences with no effort or accessory muscle use Head- atraumatic Eyes- PERRL, EOMI, anicteric ENT- oropharynx clear Neck- supple, no JVD, no adenopathy, no thyromegaly; carotids +2/2, no bruits appreciated Lungs- clear to auscultation bilaterally, no rales/wheezes Heart- normal rate, regular rhythm; no murmur, no gallop, no rub appreciated Abdomen- normal bowel sounds, nondistended, soft, nontender, no masses or hepatosplenomegaly Extremities- no pretibial edema, no calf tenderness; peripheral pulses intact Neuro- alert, oriented x 3; CN 2-12 grossly intact; motor 5/5 bilaterally;sensation 100% on all extremities; no other gross focal neurologic deficits Skin- warm & dry Discharge Data Allergies Allergy/AdvReac Type Severity Reaction Status Date / Time No Known Allergies Allergy Verified 11/22/21 16:57 Consultations 11/22/21 17:56 ED Decision to Admit Stat 11/22/21 20:42 Consult Neurology Routine Ordered Studies 11/22/21 16:09 CT angio head w con Stat CT angio neck with con Stat CT head/brain wo con Stat Comparison: None available at the time of this dictation. FINDINGS: CT head: Areas of decreased attenuation are present in the periventricular and subcortical white matter bilaterally consistent with small vessel ischemic disease. Generalized cerebral atrophy with commensurate enlargement of the ventricles, sulci, and cisterns is also present. There is no acute intracranial hemorrhage or evidence of acute territorial infarction. No shift of the midline structures, mass effect, or extra-axial abnormalities are shown. Atherosclerotic calcifications are present in the intracranial segments of the internal carotid arteries. Multiple large thyroid nodules are seen measuring up to 16 mm in diameter. CTA Neck: A 3 vessel aortic arch is shown. There is no significant atherosclerotic plaque in the aortic arch or the origins of the innominate, left common carotid, and left subclavian arteries. The common carotid, external carotid, cervical segments of the internal carotid arteries, and the cervical segments of the vertebral arteries are patent without hemodynamically significant stenosis. The left vertebral artery is dominant. CTA Head: The anterior and posterior cerebral circulations are patent. No hemodynamically significant stenosis, aneurysm, dissection, or arteriovenous malformation is shown. Atherosclerotic disease is noted. IMPRESSION: 1. No acute intracranial hemorrhage, evidence of acute territorial infarction, or other acute intracranial disease process. 2. No occlusion, hemodynamically significant stenosis, aneurysm, dissection, or arteriovenous malformation in the major intracranial arteries. 3. No occlusion, hemodynamically significant stenosis, or dissection in the major cervical arteries. 4. Multiple thyroid nodules are seen. If not previously evaluated, nonemergent thyroid ultrasound can be performed. Assessment of stenosis of the internal carotid arteries is based on NASCET criteria. ACT 112: Positive. There are findings on this exam that require communication between the performing entity and the patient following Patient Test Result Information Act ([place] Act 112) guidelines. 11/23/21 19:29 MR brain wo/w con Urgent Brain MRI WITH AND WITHOUT CONTRAST HISTORY: Amnesia R/O CVA TECHNIQUE: Multiplanar multisequence MRI of the brain was performed both before and after the intravenous administration of contrast. COMPARISON STUDY: Head CT 11/22/2021. FINDINGS: There is no mass, hematoma, midline shift, or acute infarct. The paranasal sinuses are clear. The mastoid air cells are clear. The ventricles and sulci demonstrate mild age-related involutional changes. Scattered foci of T2 hyperintensity seen within the periventricular and subcortical white matter are nonspecific but suggestive of mild microvascular ischemic changes. The major vascular flow voids at the skull base are well-maintained. A 1 cm faint blush of contrast within the left apolinar favors a capillary telangectasia. IMPRESSION: No acute intracranial abnormality. Scattered foci of T2 hyperintensity seen within the periventricular and subcortical white matter are nonspecific but favor microvascular ischemic change. ACT 112: Negative or not required by law. Hospital Course (1) Confusion: per admitting service notes with addendum: Confusion/memory issues DD: CVA, transient global amnesia, Seizure, hypertensive encephalopathy --CTA Head/Neck: No acute intracranial hemorrhage, evidence of acute territorial infarction, or other acute intracranial disease process. No occlusion, hemodynamically significant stenosis, aneurysm, dissection, or arteriovenous malformation in the major intracranial arteries. No occlusion, hemodynamically significant stenosis, or dissection in the major cervical arteries. Multiple thyroid nodules are seen. If not previously evaluated, nonemergent thyroid ultrasound can be performed. -- Given aspirin in ED Blood pressure control Given thiamine 500 mg Obtain MRI brain, EEG, urine tox screen TSH normal Urine analysis normal Check vitamin B12 levels, lipid panel, HbA1c Neuro checks requested Neurology consulted Further work-up based on MRI, EEG results No obvious source of infection noted 11/23 Brain MRI: no acute Process CT angio: 1. No acute intracranial hemorrhage, evidence of acute territorial infarction, or other acute intracranial disease process. 2. No occlusion, hemodynamically significant stenosis, aneurysm, dissection, or arteriovenous malformation in the major intracranial arteries. 3. No occlusion, hemodynamically significant stenosis, or dissection in the major cervical arteries. 4. Multiple thyroid nodules are seen. If not previously evaluated, nonemergent thyroid ultrasound can be performed. BP improved gradually overnight per family, patient had multiple episodes of amnesia, occurring during social e vents evaluated by Neurologist Dr. Boyer: Would benefit from neuropsych testing near her home if symptoms are recurrent . ff up with PCP in 1 week Hypertensive urgency, Resolved BP systolic 200s in the ER per family, patient adherent to BP meds and BP yesterday noon was systolic 120s Resume usual medications including amlodipine, lisinopril Multiple Thyroid nodules TSH within normal limits Further work-up as outpatient Prolonged QTC Avoid QTC prolonging meds QTC 472 Hyperlipidemia Continue statin GERD Continue PPI DVT Px: SCDs for now Disposition d/c home ff up with PCP in 1 week plan of care discussed with patient and daughter in law in detail and at length all questions answered they are understanding, agreeable, comfortable with the plan of care Total Time Total Time Spent Total Time Spent (In Minutes): >30 MINUTES Discharge Plan Discharge Items Patient Disposition: Home - Self-Care Reason For Visit: CONFUSION Discharge Diagnosis: EPISODE OF CONFUSION Activity: Resume your previous activity Activity Comment: RESUME ACTIVITY GRADUALLY TOLERATED Lifting: Wait until after follow-up appointment Exercise/Sports: Wait until after follow-up appointment Driving/Machine Use: NO DRIVING UNTIL RE-EVALUATED AND ALLOWED BY PRIMARY CARE PHYSICIAN Non-emergency contact: Primary Care Provider Call non-emergency contact if: you have any medication questions, your symptoms worsen, your pain is not controlled, your pain is worsening, your pain is unusual for you, your pain is concerning for you and you have a fever Follow-up/Referrals: PCP,NO [Primary Care Provider] - Diet: Heart Healthy Addtl Attending Provider Instructions: PLEASE RESUME YOUR USUAL MEDICATIONS. TAKE YOUR MEDICATIONS DAILY PRESCRIBED. STOP TAKING BACLOFEN THIS MEDICATION CAN CAUSE CONFUSION. MONITOR YOUR BLOOD PRESSURE DAILY AND CALL YOUR PRIMARY CARE PHYSICIAN IF BP IS PERSISTENTLY >140/90. RETURN TO THE ER IMMEDIATELY IF WITH WORSENING OF SYMPTOMS, INCLUDING CONFUSION, WEAKNESS/NUMBNESS, CHEST PAIN, SHORTNESS OF BREATH. FOLLOW UP WITH PRIMARY CARE PHYSICIAN IN 3-5 DAYS. Pending Studies at Discharge: No Stand-Alone Forms: [facility], Smoking Cessation Medications and DC Order Prescriptions: Continued multivitamin Tablet 1 tab PO DAILY RF: 0 metoprolol succinate 50 mg tablet extended release 24 hr 75 mg PO DAILY RF: 0 gabapentin 400 mg capsule See Rx Instructions .ROUTE .COMPLEX RF: 0 amlodipine 5 mg tablet 2.5 - 5 mg PO QAM PRN (Reason: IF SBP IS >130.) RF: 0 aspirin 81 mg Tablet,Delayed Release (Dr/Ec) 81 mg PO HS RF: 0 ciclopirox 8 % solution 1 applic TOPICAL DAILY RF: 0 pantoprazole 40 mg tablet,delayed release (DR/EC) 40 mg PO DAILY RF: 0 lisinopril 30 mg tablet 30 mg PO DAILY RF: 0 methylprednisolone 4 mg tablets,dose pack 0 mg PO DAILY RF: 0 albuterol sulfate [Ventolin HFA] 90 mcg/actuation HFA aerosol inhaler 2 puff INHALATION DIRECTED PRN (Reason: Shortness Of Breath) RF: 0 rosuvastatin 10 mg tablet 10 mg PO DAILY RF: 0 Discontinued baclofen 10 mg tablet 10 mg PO BID PRN (Reason: MUSCLE SPASMS) RF: 0 Discharge Orders: Discharge Order (Routine); Ordered 11/23/21 Ordered By: David Naik Admission Data Admit Date/Time: 11/22/21 19:23 Attending Provider: David Naik Admit Provider: Matthew Rosales Primary Care Provider: PCP,NO Other Providers: Matthew Rosales ; Gabe Boyer Other Interventions: Discharge Summary Assessment (RN) Last Done: 11/23/21 12:29
[2021-11-23] MEDS ORDERED: ASPIRIN 81 MG ECTAB PO SCH (21:00)
[2021-11-24 07:27] LABS: Estimated Average Glucose 111 mg/dl; Hemoglobin A1C 5.5 % (4.5-5.6)
== END 2021-11-23 13:11 | disposition home or self-care (01) ==
LOC: ED 15:37 → 2S 19:23 → INTOOBSV 19:23 → SUATTDRO 19:23 → 2S 20:19
DX: Z79.899 Other long term (current) drug therapy; Z87.891 Personal history of nicotine dependence; E04.2 Nontoxic multinodular goiter; K21.9 Gastro-esophageal reflux disease without esophagitis; I10 Essential (primary) hypertension; Z79.82 Long term (current) use of aspirin; R41.3 Other amnesia; R41.0 Disorientation, unspecified; E78.5 Hyperlipidemia, unspecified; I45.81 Long QT syndrome